=== PATIENT | female | born 1940 | race Two or more races ===

== ENCOUNTER 2024-01-23 12:03 | Emergency (ER) | payer MEDICARE, MEDICAID, SELFPAY ==
[2024-01-23 12:21] VITALS: BP 111/58; PULSE 98; RESP 18; TEMP 37; O2SAT 94; BMI 33.8
--- NOTE | 2024-01-23 12:23 | XR_ITS ---
Examination: CT abdomen and pelvis without contrast. Coronal 3-D reconstructions. Sagittal 2-D reconstructions. Date and time of exam:January 23, 2024 1257 hours INDICATIONS: Lower abdominal pain beginning 3 days ago CTDI: vol (mGy): 9.96 DLP: (mGycm): 613 Technique: Axial images of the abdomen have been obtained, 3 mm slice thickness Intravenous contrast material has not been administered. Low dose protocols were performed. One or more of the following dose reduction techniques were used; automated exposure control, adjustment of the mA and/or KV according to patient size, use of iterative reconstruction technique. 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
--- NOTE | 2024-01-23 12:23 | PD.EDRME ---
Rapid Medical Screening Exam RME Arrival date/time: 01/23/24 12:03 83-year-old female presents to the emergency department complaint of right flank pain and pelvic pain Chief Complaint: Abdominal Pain Vital signs: Vital Signs Temperature 98.6 F 01/23/24 12:21 Pulse Rate 98 01/23/24 12:21 Respiratory Rate 18 01/23/24 12:21 Blood Pressure 111/58 L 01/23/24 12:21 Pulse Oximetry (%) 94 L 01/23/24 12:21 Oxygen Delivery Method Room Air 01/23/24 12:21
[2024-01-23 12:54] LABS: Basophils # (Auto) 0.1 Thou/mm3 (0.0-0.2); Basophils % (Auto) 1 % (0-2.5); Eosinophils # (Auto) 0.1 Thou/mm3 (0.0-0.5); Eosinophils % (Auto) 1 % (0-10); Hematocrit 43.3 % (36.0-46.0); Hemoglobin 13.8 g/dL (12.0-16.0); Immature Granulocytes % (Auto) 0 % (0-0); Immature Granulocytes Auto 0.04 Thou/mm3 (0.00-0.00); Lymphocytes # (Auto) 1.8 Thou/mm3 (1.0-4.8); Lymphocytes % (Auto) 16 % (10-50); Mean Corpuscular HGB Conc 31.9 g/dl (31.0-37.0); Mean Corpuscular Hemoglobin 27.7 pg (25.0-35.0); Mean Corpuscular Volume 87 fL (80-100); Monocytes # (Auto) 0.6 Thou/mm3 (0.0-0.8); Monocytes % (Auto) 6 % (0-12); Neutrophils # (Auto) 8.5 Thou/mm3 (1.8-7.7); Neutrophils % (Auto) 76 % (37-80); Nucleated Red Blood Cell % 0 /100 WBC (0); Platelet Count 237 Thou/mm3 (140-440); RDW Standard Deviation 42.5 fL (36.4-46.3); Red Blood Count 4.99 Miln/mm3 (4.00-5.20); White Blood Count 11.2 Thou/mm3 (3.6-11.0)
[2024-01-23 13:01] LABS: Collection Type, Urine Clean Catch
[2024-01-23 13:07] LABS: Alanine Aminotransferase 15 U/L (10-49); Albumin, Serum 5.1 gm/dL (3.4-4.8); Albumin/Globulin Ratio 2.2 (1.2-2.2); Alkaline Phosphatase 68 U/L (46-116); Anion Gap 10 (7-16); Aspartate Amino Transferase 12 U/L (0-34); BUN/Creatinine Ratio 28 Ratio (12-20); Bilirubin,Total 0.4 mg/dL (0.3-1.2); Blood Urea Nitrogen 33 mg/dL (9-23); Carbon Dioxide 23.8 mMol/L (20.0-31.0); Chloride 100 mMol/L (98-107); Creatinine (Component) 1.2 mg/dL (0.6-1.3); Estimated Creatinine Clearance 38.4 mL/min (>60); Globulin 2.3 gm/dL (2.3-3.5); Glucose 212 mg/dL (74-106); Lipase 32 U/L (12-53); Osmolality,Calculated 281 (275-295); Sodium 134 mMol/L (136-145); Total Protein 7.4 gm/dL (5.7-8.2); eGFR 45 See Note
[2024-01-23 13:21] LABS: Bilirubin,Urine Negative (Negative); Blood,Urine Negative (Negative); Clarity,Urine Clear (Clear/Hazy); Color,Urine Colorless (Lt Yel-Yel); Culture Indicated,Urine Not Indicated; Glucose, Urine 4+ (Negative); Ketones,Urine Negative (Negative); Leukocyte Esterase,Urine Positive (Negative); Nitrite,Urine Negative (Negative); PH,Urine 5.5 (5.0-7.0); Protein,Urine Trace (Neg - Trace); RBC,Urine 1 /hpf (0-3); Specific Gravity,Urine 1.016 (1.001-1.035); Squamous Epithelial Cell,Urine 2 /hpf (0-5); Urobilinogen,Urine Negative mg/dL (0.0-1.0); WBC,Urine 4 /hpf (0-5)
[2024-01-23 15:53] VITALS: BP 125/66; PULSE 62; RESP 20; TEMP 36.7; O2SAT 95
--- NOTE | 2024-01-23 16:28 | PD.EDABDPN ---
ED Abdominal Pain RME/HPI General Chief Complaint: Abdominal Pain Stated complaint: GALLBLADDER PAIN X YESTERDAY AFTER EATING CHEESE Arrival date/time: 01/23/24 12:03 Limitations: no limitations RME / HPI RME / HPI narrative: 01/23/24 12:03 83-year-old female presents to the emergency department complaint of right flank pain and pelvic pain DR. STEVE MCDONALD ED EVALUATION: 83 year old female s/p cholecystectomy presents to the ED for complaint of abdominal pain beginning yesterday. Described as aching in sensation that is located most across her lower abdomen, rated as moderate. Accompanied by nausea. Reports she had experienced similar pain yesterday and drank cinnamon tea with some improvement. States this morning after eating breakfast her pain returned, prompting ED visit. Patient additionally reported last night she woke up twice to urinate however denies any dysuria, urinary frequency, or urinary urgency. Denies fevers, chills, sweats, cough, vomiting. Related Data Home Medications ?Medication ?Instructions ?Recorded ?Confirmed gabapentin 100 mg capsule 100 mg PO BID #0 caps 08/22/16 12/25/18 insulin glargine 100 unit/mL 60 unit subcut QAM #0 vials 08/22/16 12/25/18 subcutaneous solution (Lantus U-100 Insulin) pravastatin 40 mg tablet 40 mg PO HS #0 tabs 08/22/16 12/25/18 (Pravachol) metformin 850 mg tablet 850 mg PO BID #0 tabs 08/25/16 12/25/18 (Glucophage) metoprolol tartrate 50 mg tablet 50 mg PO BID #0 tabs 09/01/16 12/25/18 lisinopril 20 1 tab PO BID 12/23/18 12/25/18 mg-hydrochlorothiazide 12.5 mg tablet Previous Rx's ?Medication ?Instructions ?Recorded dextromethorphan-guaifenesin 10 10 ml PO Q6HR PRN Cough #300 mL 12/27/18 mg-100 mg/5 mL oral syrup Allergies Allergy/AdvReac Type Severity Reaction Status Date / Time No Known Allergies Allergy Verified 01/23/24 12:05 Review of Systems Review of Systems Narrative Review of Systems: GEN: No fever, no chills, no weight loss EYES: No discharge, no visual changes, no pain HEENT: No ear pain, no congestion, no sore throat PULM: No shortness of breath, no cough, no congestion CV: No chest pain, no dyspnea on exertion, no palpitations GI: + nausea, no vomiting, no diarrhea, +pain, no constipation : No frequency, no urgency, no dysuria MUSC/SKEL: No joint pain, no back pain SKIN: No rash PSYCH: No hallucinations, no depression HEME/LYMPH: No easy bleeding or bruising tendencies NEURO: No weakness, no headache Past Medical History Past Medical History CARDIAC: Positive Hypertension; Negative Cardiac Disorders or Congestive Heart Failure RESPIRATORY: Negative Chronic Obstructive Pulmonary Disease (COPD) or Asthma GASTROINTESTINAL: Positive Gall Bladder Disease GENITOURINARY: Negative Renal Disease MUSCULOSKELETAL: Positive Musculoskeletal Disorders ENDOCRINE: Positive Endocrine Disorders and Diabetes Mellitus Type 2; Negative Diabetes Mellitus Type 1 HEMATOLOGIC: Negative Sickle Cell Disease Surgical History SURGICAL: Positive Mastectomy (rt side) Social History SMOKING STATUS: Never smoker SUBSTANCE USE: does not use ED Exam General Limitations: Present no limitations General appearance: Present alert and in no apparent distress Head Head exam: Present atraumatic Eye Eye exam: Present normal appearance, PERRL and EOMI ENT ENT exam: Present normal exam, normal oropharynx and mucous membranes moist Neck Neck exam: Present normal inspection, full ROM and trachea midline Chest Chest inspection: Present normal inspection and symmetric chest wall rise Respiratory Respiratory exam: Present normal lung sounds bilaterally Cardiovascular Cardiovascular exam: Present regular rate, normal rhythm and normal heart sounds Abdominal Exam Abdominal exam: Present soft and normal bowel sounds Extremities Exam Extremities exam: Present normal inspection and full ROM Back Exam Back exam: Present normal inspection and full ROM Neurological Exam Neurological exam: Present alert, oriented X3 and CN II-XII intact Psychiatric Psychiatric exam: Present normal affect and normal mood Skin Skin exam: Present warm, dry, intact and normal color Course Quality Measures none Orders Category Date Time Status CT abdomen pelvis wo con Stat Exams 01/23/24 12:23 Completed CBC Stat Lab 01/23/24 12:26 Completed Comprehensive Metabolic Panel Stat Lab 01/23/24 12:26 Completed Lipase Stat Lab 01/23/24 12:26 Completed UA, C/S IF [Urinalysis, C/S if Indicated] Stat Lab 01/23/24 12:48 Completed HYDROcodone/APAP 10/325 [Bisbee 10/325] Med 01/23/24 16:46 Discontinued 1 tab PO X1 ONE Reevaluation(s) Reevaluation #1: Patient remains clinically stable throughout the emergency department visit. We reviewed all the results, analysis, and treatment plans. Patient is amenable to discharge. Strict return precautions were outlined. Patient was discharged in stable condition. Time: 16:33 Vital Signs Vital signs: Vital Signs Temperature 98.6 F 01/23/24 12:21 Pulse Rate 98 01/23/24 12:21 Respiratory Rate 18 01/23/24 12:21 Blood Pressure 111/58 L 01/23/24 12:21 Pulse Oximetry (%) 94 L 01/23/24 12:21 Oxygen Delivery Method Room Air 01/23/24 12:21 Pulse ox is 94% on room air which is adequate. Abdominal Pain MDM MDM Narrative MDM Narrative:: Lesa Elam am scribing for and in the presence of Dr. Evans. Patient data External records reviewed:: [facility] previous records Clinical information provided by:: patient and family (Son adds to hpi ) Social determinants that could affect healthcare access:: none Patient has the following chronic illnesses:: HTN, DM How is presenting disease/condition affected by chronic disease/condition?: uneffected by Evaluation data The following diagnostics were reviewed and interpreted by me:: lab results and radiology exam(s) Lab and/or radiology exams considered but not ordered:: None Interpretation Summary: Ordering Physician: Maria Del Rosario MIXON)Dale NP Date of Service: 01/23/24 Procedure(s): CT abdomen pelvis wo con Accession Number(s): [id number] cc: Maria Del Rosario MIXON)Dale NP; Ross Morales MD~ Examination: CT abdomen and pelvis without contrast. Coronal 3-D reconstructions. Sagittal 2-D reconstructions. Date and time of exam:January 23, 2024 1257 hours INDICATIONS: Lower abdominal pain beginning 3 days ago CTDI: vol (mGy): 9.96 DLP: (mGycm): 613 Technique: Axial images of the abdomen have been obtained, 3 mm slice thickness Intravenous contrast material has not been administered. Low dose protocols were performed. One or more of the following dose reduction techniques were used; automated exposure control, adjustment of the mA and/or KV according to patient size, use of iterative reconstruction technique. 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 Dictated By: Ross Morales MD Signed By: <Electronically signed by Ross Morales MD in [place]> 01/23/24 1340 Medications / Prescriptions Medications or Prescriptions considered but not ordered:: None Medication administrations:: Medication Administration History Discontinued Medications Hydrocodone Bitart/Acetaminophen (Hydrocodone/Apap 10/325 Tab) 1 tab PO X1 ONE Stop: 01/23/24 16:47 Last Admin: 01/23/24 17:02 Dose: 1 tab Documented By: MARICHUY See above Consultations Consultation(s) initiated? (list below): No Diagnosis Differential diagnosis abdominal pain: abdominal pain, acute appendicitis, calculus of kidney and constipation Most likely diagnosis given after review of the tests above:: Abdominal pain Admission Indicated Admission indicated?: not indicated Admission Request Was there a request for admission?: No Disposition Plan Disposition Plan: Discharge Discharge Attestation Discharge Attestation: The patient and all family members were given an opportunity to ask questions and understood the discharge instructions. Discharge instructions specifically effects, indications for sooner follow up or return to the emergency department, and the expected course of current diagnosis. Patient condition: Stable Discharge Plan Plan Patient Disposition: HOME (Self Care) Disposition Comment: Stable for discharge Patient condition on transfer: Stable Prescriptions/Referrals Prescriptions/Med Rec: No Action Lantus U-100 Insulin 100 U/ML solution 60 unit Sub-Q QAM Qty: 0 pravastatin [Pravachol] 40 MG tablet 40 mg PO HS Qty: 0 gabapentin 100 MG capsule 100 mg PO BID Qty: 0 metformin [Glucophage] 850 MG tablet 850 mg PO BID Qty: 0 metoprolol tartrate 50 MG tablet 50 mg PO BID Qty: 0 lisinopril-hydrochlorothiazide 20-12.5 mg Tablet 1 tab PO BID dextromethorphan-guaifenesin 10-100 mg/5 mL Syrup 10 ml PO Q6HR PRN (Reason: Cough) Qty: 300 0RF Referrals: [facility] [Outside] - In 1 week Heidi Lin MD [Physician] - In 1 week Problem List Clinical Impression: Abdominal pain Patient/Caregiver Discharge Instructions Discharge Activity: activity as tolerated Education Materials: Abdominal Pain, ED Pain, Acute, Uncertain Cause Additional Instructions: Return to the emergency department for any worsening or any further medical problems Please follow-up with your primary care doctor. If you do not have a primary doctor you can follow-up in the [facility] here in [place]. The address and phone number have been included above Print Language: Urdu Stand Alone Forms: Yina Award Info., Patient Portal Info Letter
[2024-01-23] MEDS: HYDROcodone/APAP 10/325 TAB PO (17:02)
== END 2024-01-23 18:04 | disposition home or self-care (01) ==
PROVIDERS: Nurse Practitioner Primary Care; Emergency Provider Emergency Medicine
DX: K56.7 Ileus, unspecified (principal)
CPT/HCPCS: 36415; 74176; 80053; 81001; 83690; 85025; 99284; A9270